=== PATIENT | female | born 1980 | race Two or more races ===

== ENCOUNTER → 2024-08-17 | Emergency (ER) | payer OTHER ==
[~2024-08-17] VITALS: Ht 167.6 cm; Wt 75.7 kg
[~2024-08-17] MED LIST: DIPHTH,PERTUSS(ACELL),TET VAC 0.5 ML SYRINGE IM ONE; TETANUS & DIPHTHERIA TOX,ADULT 0.5 ML VIAL IM ONE
== END | disposition home or self-care (01) ==
LOC: ER 18:18
DX: S81.022A Laceration with foreign body, left knee, initial encounter (principal); W18.39XA Other fall on same level, initial encounter; Y93.89 Activity, other specified; Y92.89 Other specified places as the place of occurrence of the external cause; Y99.9 Unspecified external cause status